=== PATIENT | female | born 1965 | race Two or more races ===

== ENCOUNTER → 2017-02-25 | Outpatient (CLI) | payer BC ==
--- NOTE | 2017-02-25 12:15 | HKNOTE ---
DATE OF SERVICE: 02/25/2017 CHIEF COMPLAINT: Left shoulder pain. HISTORY OF PRESENT ILLNESS: This is a 51-year-old female who states that 3 months ago she was lifti ng a heavy box at work when she felt pain in the left shoulder. The pain has progressively increase d. She does not take any pain medications. She denies any weakness. She is able to perform activi ties of daily living. She does not have any other complaints. LEFT SHOULDER EXAMINATION: Tender over the anterior deltoid, 180 degrees of forward flexion, 30 deg suze extension, 180 degrees of abduction, 30 degrees of adduction, 90 degrees external rotation, 90 degrees internal rotation. Positive Neer's, positive Dale, positive belly pres. Negative lift o ff, negative Haleigh's test, 5/5 function of median, ulnar, radial axillary nerves. X-RAYS LEFT SHOULDER: 3 views of the left shoulder demonstrate no fracture or dislocations or no de generative changes seen. IMPRESSION: A 51-year-old female with left shoulder rotator cuff strain. PLAN: I discussed treatment options including pain medications and injections. She declined both t reatment options. We will request an authorization for an MRI of the left shoulder as well as physi zachary therapy for the left shoulder. She will follow up with me as needed in the future. Dictated By: CHUNG VINSON/TRAVON Conf#: [id number] DID#: [id number]
--- NOTE | 2017-02-26 13:09 | RADRPT ---
PROCEDURE: Shoulder x-ray CLINICAL INDICATION: Pain TECHNIQUE: Left shoulder 3 views COMPARISON: None FINDINGS: 3 views of the left shoulder demonstrate no displaced fracture. The humeral head articulates anatom ically with the glenoid fossa. The acromioclavicular articulation is within normal limits. Bones a re normally mineralized. Soft tissues are unremarkable. IMPRESSION: No acute fracture dislocation No significant degenerate change RPTAT: HH .Curry Zheng MD, Date Time Electronically viewed and signed by .Curry Zheng MD, on 02/26/2017 13:09 .W/
== END | disposition home or self-care (01) ==
LOC: HKI 11:06
PROVIDERS: ATTEND Orthopaedic Surgery Adult Reconstructive Orthopaedic Surgery
DX: S46.012D Strain of muscle(s) and tendon(s) of the rotator cuff of left shoulder, subsequent encounter (principal)
CPT/HCPCS: 73030; Z7500; G0463

== ENCOUNTER → 2017-03-26 | Outpatient (CLI) | payer BC ==
--- NOTE | 2017-03-26 19:43 | HKNOTE ---
DATE OF SERVICE: 03/26/2017 CHIEF COMPLAINT: Left shoulder pain. HISTORY OF PRESENT ILLNESS: This is a 51-year-old female with complaint of left shoulder pain. She recently had an MRI of the left shoulder. She states that the pain is interfering with her activit ies of daily living. She has difficulty performing her house chores. She has difficulty lifting wi th the left arm. She denies any numbness or tingling. LEFT SHOULDER EXAMINATION: Tender over the anterior deltoid. Nontender over the AC joint and clavi courtney, 180 degrees of abduction, 180 degrees forward flexion, 30 degrees extension, 90 degrees externa l rotation, 90 degrees internal rotation. Positive Dale. negative Neer, negative belly press, n egative liftoff. MRI, LEFT SHOULDER: No rotator cuff tear is seen. There is a subacromial bursitis. IMPRESSION: A 51-year-old female with left shoulder rotator cuff strain and subacromial bursitis. PLAN: We will request authorization for physical therapy. If she continues to have pain, she can f ollow up for left shoulder corticosteroid injection in the future. She was advised to take ibuprofe n as necessary. Dictated By: CHUNG VINSON/TRAVON Conf#: [id number] DID#: [id number]
== END | disposition home or self-care (01) ==
LOC: HKI 13:52
PROVIDERS: ATTEND Orthopaedic Surgery Adult Reconstructive Orthopaedic Surgery
DX: M75.52 Bursitis of left shoulder (principal)
CPT/HCPCS: G0463